=== PATIENT | female | born 1990 | race African-American/Black ===

== ENCOUNTER 2018-03-18 05:31 | Inpatient (IN) ==
[2018-03-18] MEDS ORDERED: LACTATED RINGERS 1,000 ML IV PRN (05:41)
[2018-03-18 06:05] LABS: Barbiturates Screen,Urine Negative (Negative); Benzodiazepines Screen,Urine Negative (Negative); Cannabinoid Screen,Urine Positive (Negative); Opiate Screen,Urine Negative (Negative); Phencyclidine Screen,Urine Negative (Negative)
[2018-03-18 06:14] LABS: Apearance,Urine CLEAR (Clear); Bilirubin,Urine Negative (Negative); Blood, Urine Negative (Negative); Glucose,Urine (UA) Negative (Negative); Ketones,Urine Negative (Negative); Nitrite,Urine Negative (Negative); Protein,Urine Negative; RBC,Urine <1 /HPF (0-4); Squamous Epithelial Cell,Urine Occasional /HPF (0-10); Urine Color Yellow (Yellow); Urine Specific Gravity 1.012 (1.001-1.035); Urine Urobilinogen < 2.0 EU/DL (0.2-1.0); WBC,Urine 1 /HPF (0-6)
[2018-03-18] MEDS ORDERED: BUTORPHANOL 2 MG/ML VIAL IV PRN (06:16)
[2018-03-18] MEDS ORDERED: ONDANSETRON 4 MG/2 ML VIAL IV PRN (06:16)
[2018-03-18] MEDS ORDERED: MEPERIDINE 50 MG/1 ML VIAL IV PRN (06:16)
[2018-03-18] MEDS: LACTATED RINGERS 1,000 ML IV SCH ×2 (06:25→08:54)
[2018-03-18] MEDS ORDERED: AMPICILLIN INJ 2,000 MG in SODIUM CHLORIDE 0.9% 100 ML IV SCH (06:30)
[2018-03-18] MEDS ORDERED: LACTATED RINGERS 1,000 ML IV SCH (06:30)
[2018-03-18 06:32] LABS: Basophils % 0.3 % (0.0-0.8); Eosinophils # 0.2 10*3/uL (0.0-0.87); Eosinophils % 2.1 % (0.00-10.9); Hematocrit 30.8 VOL% (35.7-47.0); Hemoglobin 10.5 GM/DL (12.0-16.0); Immature Granulocytes % 0.4 %; Immature Granulocytes Absolute 0.04 #; Lymphocytes # 1.8 10*3/uL (1.4-4.0); Lymphocytes % 18.1 % (21.3-54.2); Mean Corpuscular HGB Conc 34.1 GM/DL (32-36); Mean Corpuscular Hemoglobin 33 PG (27-34); Mean Corpuscular Volume 98.1 FL (87-102); Mean Platelet Volume 10.5 FL (9.6-12.0); Monocytes # 0.8 10*3/uL (0.11-0.8); Monocytes % 7.5 % (1.7-12.7); Neutrophils # 7.3 10*3/uL (1.4-7.4); Neutrophils % 71.6 % (38.7-73.9); Platelet Count 176 T/CUMM (130-400); Red Blood Count 3.14 MC/CUMM (3.8-5.5); Red Cell Distribution Width 12.2 % (9.3-17.3); White Blood Count 10.2 T/CUMM (4-12)
[2018-03-18 06:50] LABS: Alanine Aminotransferase 13 U/L (13-56); Albumin 2.5 G/DL (3.4-5.0); Alkaline Phosphatase 98 U/L (45-117); Aspartate Amino Transferase 13 U/L (0-37); Bilirubin,Total < 0.39 MG/DL (0.2-1.0); Blood Urea Nitrogen 4 MG/DL (7-18); Calcium 8.4 MG/DL (8.5-10.1); Glucose 92 MG/DL (74-106); Osmolality,Calculated 273.5 MOS/KG (273-304); Potassium 3.8 MMOL/L (3.5-5.1); Sodium 139 MMOL/L (136-145); Total Protein 6.5 G/DL (6.4-8.3)
[2018-03-18] MEDS ORDERED: OXYTOCIN/LR 20 UNIT/1,000 ML BAG IV ONE ×3 (10:05→10:44)
[2018-03-18] MEDS ORDERED: LIDOCAINE 1% 50 ML VIAL ONE (10:06)
[2018-03-18] MEDS ORDERED: METHYLERGONOVINE 0.2 MG/1 ML AMP ONE (10:07)
[2018-03-18] MEDS ORDERED: miSOPROStol 200 MCG TABLET ONE (10:07)
[2018-03-18] MEDS ORDERED: HYDROCORTISONE 2.5% RECTAL CREAM 30 GM TUBE TOP PRN (10:44)
[2018-03-18] MEDS ORDERED: ACETAMINOPHEN 325 MG TABLET PO PRN (10:44)
[2018-03-18] MEDS ORDERED: WITCH HAZEL PADS 100/JAR TOP PRN (10:44)
[2018-03-18] MEDS ORDERED: BENZOCAINE 20%/MENTHOL 0.5% SPRAY 56 GM CAN TOP PRN (10:44)
[2018-03-18] MEDS ORDERED: LANOLIN 50% CREAM 0.3 OZ TUBE TOP PRN (10:44)
[2018-03-18] MEDS ORDERED: BISACODYL 10 MG SUPP RECTAL PRN (10:44)
[2018-03-18] MEDS ORDERED: oxyCODONE/ACETAMINOPHEN 5-325 MG TABLET PO PRN (10:44)
[2018-03-18 10:45] LABS: Hepatitis B Surface Ag Quant 0.46 Index; Hepatitis B Surface Ag Result Negative (Negative); Rubella Antibody IgG 84.1 IU/ML
[2018-03-18] MEDS ORDERED: MEASLES/MUMPS/RUBELLA VACCINE 0.5 ML VIAL SUBCUT ONE (11:00)
[2018-03-18] MEDS ORDERED: RHO(D) IMMUNE GLOBULIN 300 MCG SYRINGE IM ONE (11:00)
[2018-03-18] MEDS ORDERED: DIPH/TET/ACEL PERT BOOSTER VACCINE 0.5 ML VIAL IM ONE (11:00)
[2018-03-18 11:13] LABS: HIV Antigen/Antibody Result Nonreactive (Nonreactive)
[2018-03-18] MEDS: DOCUSATE SODIUM 100 MG CAPSULE PO SCH (20:00)
[2018-03-18] MEDS: IBUPROFEN 800 MG TABLET PO PRN (20:00)
[2018-03-18] MEDS: oxyCODONE/ACETAMINOPHEN 5-325 MG TABLET PO PRN (20:01)
[2018-03-19 06:30] LABS: Basophils % 0.3 % (0.0-0.8); Eosinophils # 0.2 10*3/uL (0.0-0.87); Hematocrit 29.1 VOL% (35.7-47.0); Immature Granulocytes % 0.3 %; Immature Granulocytes Absolute 0.04 #; Lymphocytes # 2.7 10*3/uL (1.4-4.0); Lymphocytes % 23.1 % (21.3-54.2); Mean Corpuscular HGB Conc 34.4 GM/DL (32-36); Mean Corpuscular Hemoglobin 34 PG (27-34); Mean Platelet Volume 10.3 FL (9.6-12.0); Monocytes # 0.9 10*3/uL (0.11-0.8); Monocytes % 7.3 % (1.7-12.7); Neutrophils # 7.8 10*3/uL (1.4-7.4); Platelet Count 164 T/CUMM (130-400); Red Blood Count 2.91 MC/CUMM (3.8-5.5); Red Cell Distribution Width 12.4 % (9.3-17.3); White Blood Count 11.6 T/CUMM (4-12)
[2018-03-19] MEDS: DOCUSATE SODIUM 100 MG CAPSULE PO SCH ×2 (08:47→20:48)
[2018-03-19] MEDS: IBUPROFEN 800 MG TABLET PO PRN ×2 (12:07→23:37)
[2018-03-20] MEDS: DOCUSATE SODIUM 100 MG CAPSULE PO SCH (07:13)
[2018-03-20] MEDS: oxyCODONE/ACETAMINOPHEN 5-325 MG TABLET PO PRN (07:13)
[2018-03-20 07:14] VITALS: BP 95/76
== END 2018-03-20 12:00 | disposition home or self-care (01) | DRG 805 ==
LOC: N.LDOUT 05:31 → N.LD 05:37 → N.OB 12:12
PROVIDERS: ADMIT Specialist; ATTEND Obstetrics & Gynecology